=== PATIENT | female | born 1975 | race Caucasian/White ===

== ENCOUNTER → 2017-03-31 | Outpatient (CLI) | payer BC ==
[~2017-03-31] MED LIST: OMNIPAQUE 350 MG/ML, 100ML BOTTLE ONE
== END | disposition home or self-care (01) ==
LOC: CFH 14:13
PROVIDERS: ATTEND Genetic Counselor, MS
DX: R59.1 Generalized enlarged lymph nodes (principal)
CPT/HCPCS: 70491; Q9967

== ENCOUNTER → 2017-07-08 | Outpatient (CLI) | payer BC | END | disposition home or self-care (01) | LOC: CFH 15:17 | PROVIDERS: ATTEND Nurse Practitioner | DX: M25.562 Pain in left knee (principal) ==

== ENCOUNTER → 2017-12-08 | Outpatient (CLI) | payer OTHER | END | disposition home or self-care (01) | LOC: CFH 08:25 | PROVIDERS: ATTEND Genetic Counselor, MS | DX: K76.89 Other specified diseases of liver (principal); R63.6 Underweight; K74.60 Unspecified cirrhosis of liver | CPT/HCPCS: 74178; Q9967 ==